=== PATIENT | female | born 1975 | race Caucasian/White ===

== ENCOUNTER 2018-11-30 07:01 | Day surgery (SDC) | payer BC ==
[2018-11-30] MEDS ORDERED: Sodium Chloride 0.9% (PF) 10 ML VIAL FS SCH (08:00)
[2018-11-30] MEDS ORDERED: Cosyntropin 250 MCG VIAL SLOW IVP SCH (08:00)
[2018-11-30 10:16] VITALS: BP 103/70; TEMP 97.9
== END 2018-11-30 15:55 | disposition home or self-care (01) ==
LOC: ONC/OP 07:01
PROVIDERS: ATTEND Internal Medicine Rheumatology
DX: E27.40 Unspecified adrenocortical insufficiency (principal)
CPT/HCPCS: 36415; 80400; 82024; 96374; J0834

== ENCOUNTER 2019-01-30 10:25 | Outpatient (CLI) | payer BC ==
--- NOTE | 2019-01-30 10:49 | RAD ---
F2 views of the left knee: 01/30/2019 COMPARISON: None HISTORY: Left knee pain FINDINGS: Mild medial and lateral compartment narrowing. Mild enthesophyte formation at the insertion of the quadriceps tendon. No significant knee joint effusion. No displaced fracture or evidence of d islocation. IMPRESSION: No acute osseous abnormality.
== END 2019-01-30 10:26 | disposition home or self-care (01) ==
LOC: SCSRAD 10:25
PROVIDERS: ATTEND Internal Medicine Rheumatology
DX: M25.562 Pain in left knee (principal)

== ENCOUNTER 2019-08-29 08:25 | Outpatient (CLI) | payer BC ==
--- NOTE | 2019-08-29 11:52 | MRI ---
MRI OF RIGHT KNEE PERFORMED WITHOUT CONTRAST ENHANCEMENT: HISTORY: Persistent knee pain. FINDINGS: The anterior as well as posterior cruciate ligaments are intact. The medial as well as lateral menisci are normal in shape and appearance. Medial and lateral collateral ligaments and iliotibial band regions are unremarkable. The patellar articular cartilage is intact. Medial and lateral patellar retinaculum and quadriceps a nd patellar tendons are normal. IMPRESSION: No evidence of meniscal or cruciate ligament injury. Unremarkable MRI examination. POS: [facility]
--- NOTE | 2019-08-29 11:53 | MRI ---
MRI LEFT KNEE: Date: 08/29/19 PROVIDED CLINICAL HISTORY: Pain. FINDINGS: The anterior cruciate ligament, posterior cruciate ligament, medial collateral ligament, and lateral collateral ligamentous complex demonstrate an intact MR appearance, as does the extensor mechanism. The medial and lateral menisci demonstrate no evidence for tear. There is mild articular cartilage irregularity involving the central-medial aspects of the lateral ti bial plateau. Articular cartilage appears otherwise preserved. The amount of fluid within the knee joint appears physiologic. No focal concerning regional marrow or muscular signal abnormality is apparent. 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 POS: [facility]
== END 2019-08-29 08:26 | disposition home or self-care (01) ==
LOC: SCSMRI 08:25
PROVIDERS: ATTEND Orthopaedic Surgery
DX: M25.562 Pain in left knee (principal); M25.561 Pain in right knee; M17.12 Unilateral primary osteoarthritis, left knee

== ENCOUNTER 2020-01-01 08:48 | Outpatient (CLI) | payer BC ==
--- NOTE | 2020-01-01 10:47 | RAD ---
CHEST 2 VIEWS: Date: 01/01/2020 HISTORY: Persistent dry cough. FINDINGS: Heart size is within normal limits. The lungs are clear. No confluent pneumonia, overt edema, or pleu ral effusion. IMPRESSION: No significant acute intrathoracic disease. No evidence for pneumonia. POS: [facility]
== END 2020-01-01 08:49 | disposition home or self-care (01) ==
LOC: SCSRAD 08:48
PROVIDERS: ATTEND Internal Medicine
DX: R05 Cough (principal)
CPT/HCPCS: 71046

== ENCOUNTER 2020-03-20 11:25 | Emergency (ER) | payer BC ==
--- NOTE | 2020-03-20 12:46 | RAD ---
PORTABLE CHEST 1 VIEW: Date: 03/20/2020 Time: 1158 hours HISTORY: Shortness of breath. FINDINGS: Comparison made with exam of 01/01/2020. The heart size is normal. The lungs are well expanded without lobar consolidation, pneumothoraces, or pleural effusions. IMPRESSION: No radiographic evidence of acute cardiopulmonary process. POS: [facility]
[2020-03-20 12:53] LABS: #Lymphocytes 0.9 thou/uL (1.20-3.40); #Monocytes 0.4 thou/uL (0.11-0.59); #Neutrophils 12.1 thou/uL (1.40-6.50); %Basophils 0.2 % (0.0-1.0); %Eosinophils 0.1 % (0.0-10.0); %Lymphocytes 6.6 % (21.0-51.0); %Monocytes 3.1 % (0.0-10.0); %Neutrophils 89.9 % (42.0-75.0); Hemoglobin 14.6 g/dL (12.0-16.0); Mean Corpuscular HGB CONC 31.7 g/dL (32.0-36.0); Mean Corpuscular Hemoglobin 29.5 pg (27.0-31.0); Mean Corpuscular Volume 93.1 fL (78.0-98.0); Mean Platelet Volume 8.4 fL (7.4-10.4); Platelet Count 249 thou/uL (130-400); RBC Distribution Width 16.1 % (11.5-14.5); Red Blood Cell (RBC) Count 4.96 mill/uL (4.20-5.40); White Blood Cell (WBC) Count 13.4 thou/uL (4.8-10.8)
[2020-03-20 13:12] LABS: ALT (SGPT) 16 U/L (8-55); AST (SGOT) 12 U/L (5-34); Albumin 4.3 g/dL (3.5-5.0); Alkaline Phosphatase 99 U/L (40-110); Anion Gap 12 mmol/L (10-20); BUN (Urea Nitrogen) 18 mg/dL (7.0-18.7); Bilirubin, Total 0.3 mg/dL (0.2-1.2); Calc. Creatinine Clearance 0 mL/min (70-130); Carbon Dioxide 25 mmol/L (22-29); Chloride 105 mmol/L (98-107); Estimated GFR-MDRD 77; Globulin 2.7 g/dL (2.4-3.5); Glucose 104 mg/dL (70-105); Potassium 4.3 mmol/L (3.5-5.1); Sodium 138 mmol/L (136-145)
== END 2020-03-20 14:28 | disposition home or self-care (01) ==
LOC: ERS 11:25
DX: R06.00 Dyspnea, unspecified (principal); F31.9 Bipolar disorder, unspecified; E27.1 Primary adrenocortical insufficiency; Z79.899 Other long term (current) drug therapy
CPT/HCPCS: 36415; 71045; 80053; 82533; 83880; 84443; 84484; 85025; 93005

== ENCOUNTER 2020-04-23 07:45 | Emergency (ER) | payer BC ==
--- NOTE | 2020-04-23 08:29 | RAD ---
EXAM: 3 views of the left ankle HISTORY: Ankle pain COMPARISON: None FINDINGS: 3 views of the left ankle shows no evidence of acute fracture or dislocation. No soft tissu e swelling is seen. No degenerative changes are present. IMPRESSION: No evidence of acute osseous abnormality.
--- NOTE | 2020-04-23 08:32 | RAD ---
EXAM: 3 views of the right ankle HISTORY: Ankle pain COMPARISON: None FINDINGS: 3 views of the right ankle shows a small avulsion fracture adjacent to the tip of the later al malleolus. Moderate lateral soft tissue swelling is seen. No degenerative changes are present. IMPRESSION: Small avulsion fracture along the tip of the lateral malleolus
[2020-04-23] MEDS ORDERED: HYDROcodone/Acetaminophen 7.5/325 mg Tablet ONE (09:44)
== END 2020-04-23 10:00 | disposition home or self-care (01) ==
LOC: ERS 07:45
DX: S82.61XA Displaced fracture of lateral malleolus of right fibula, initial encounter for closed fracture (principal); S93.402A Sprain of unspecified ligament of left ankle, initial encounter; E27.1 Primary adrenocortical insufficiency; F31.9 Bipolar disorder, unspecified; F41.9 Anxiety disorder, unspecified; Z79.899 Other long term (current) drug therapy; W17.89XA Other fall from one level to another, initial encounter

== ENCOUNTER 2020-05-11 08:05 | Outpatient (CLI) | payer BC ==
--- NOTE | 2020-05-11 09:38 | BD ---
BONE DENSITOMETRY USING DEXA: Date: 05/11/2020 HISTORY: Screening for osteoporosis. FINDINGS: Lumbar Spine: BMD (g/cm2) L1 1.002 T-Score: 0.1 Z-Score: 0.4 L2 1.120 T-Score: 0.8 Z-Score: 1.2 L3 1.290 T-Score: 1.9 Z-Score: 2.2 L4 1.154 T-Score: 0.8 Z-Score: 1.2 L1-L4 1.149 T-Score: 0.9 Z-Score: 1.3 Femoral Neck: 0.805 T-Score: -0.4 Z-Score: 0.0 Total Femur: 1.004 T-Score: 0.5 Z-Score: 0.8 The 10 year fracture risk for a major osteoporotic fracture is 3.9% and for a hip fracture is 0.1%. IMPRESSION: Normal bone mineral density. POS: [facility]
== END 2020-05-11 08:06 | disposition home or self-care (01) ==
LOC: BICMAMMO 08:05
DX: M80.80XA Other osteoporosis with current pathological fracture, unspecified site, initial encounter for fracture (principal)
CPT/HCPCS: 77080

== ENCOUNTER 2020-05-13 14:16 | Outpatient (CLI) | payer BC ==
--- NOTE | 2020-05-19 13:02 | MMO ---
Bilateral MAMMO Bilat Screen [facility]. CLINICAL HISTORY: Patient is 45 years old and is seen for screening. The patient has no family history of breast cancer. The patient has no personal history of cancer. VIEWS: The views performed were: bilateral craniocaudal with tomosynthesis; bilateral mediolateral oblique with tomosynthesis; and bilateral exaggerated craniocaudal. FILMS COMPARED: The present examination has been compared to prior imaging studies performed at [facility] on 11/27/2017 and 01/10/2019. This study has been interpreted with the assistance of computer-aided detection. MAMMOGRAM FINDINGS: There are scattered fibroglandular densities. There are no suspicious masses, suspicious calcifications, or new areas of architectural distortion. IMPRESSION: THERE IS NO MAMMOGRAPHIC EVIDENCE OF MALIGNANCY. A ROUTINE FOLLOW-UP MAMMOGRAM IN 1 YEAR IS RECOMMENDED. THE RESULTS OF THIS EXAM WERE SENT TO THE PATIENT. ACR BI-RADS Category 1 - Negative MAMMOGRAPHY NOTE: 1. A negative mammogram report should not delay a biopsy if a dominant of clinically suspicious mass is present. 2. Approximately 10% to 15% of breast cancers are not detected by mammography. 3. Adenosis and dense breasts may obscure an underlying neoplasm. Reported by: LINDA SALMERON MD Electonically Signed: [id number]
== END 2020-05-13 14:17 | disposition home or self-care (01) ==
LOC: BICMAMMO 14:16
PROVIDERS: ATTEND Internal Medicine
DX: Z12.31 Encounter for screening mammogram for malignant neoplasm of breast (principal)
CPT/HCPCS: 77063; 77067